=== PATIENT | male | born 1990 | race Two or more races ===

== ENCOUNTER 2021-02-15 18:27 | Inpatient (IN) | payer MEDICAID ==
[~2021-02-15] VITALS: Ht 170.2 cm; Wt 166.2 kg
[2021-02-15] MEDS ORDERED: ACETAMINOPHEN 325MG TABLET PO STA (18:43)
[2021-02-15 19:01] LABS: BASOPHILS % 0.9 % (0.0-2.0); EOSINOPHILS % 0.1 % (0.0-5.0); HEMATOCRIT. 59.3 % (42.0-52.0); HEMOGLOBIN. 19.4 g/dL (14.0-18.0); LYMPHOCYTES % 20.5 % (20.0-50.0); MEAN CORPUSCULAR HEMOGLOBIN 28.3 pg (28.0-32.0); MEAN CORPUSCULAR VOLUME 86.4 fL (80.0-94.0); MEAN PLATELET VOLUME 9.6 fl (7.4-10.4); MONOCYTES % 14.9 % (2.0-8.0); NEUTROPHILS % 63.6 % (40.0-76.0); PLATELET 235 x1000/uL (130-400); RED BLOOD CELL COUNT 6.86 mill/uL (4.7-6.1); RED CELL DISTRIBUTION WIDTH 16.6 % (11.6-14.6)
[2021-02-15 19:07] LABS: CHLORIDE 98 mEq/L (98-107)
[2021-02-15 19:11] LABS: INR 1.1; PROTHROMBIN TIME 11.7 sec (9.6-11.0)
[2021-02-15] MEDS ORDERED: ALBUTEROL (0.083%) 2.5MG/3ML NEB HHN ONE (20:00)
[2021-02-15 20:26] LABS: BG CARBOXYHEMOGLOBIN 0.9 % (0.5-1.5); BG DEOXYHEMOGLOBIN 7.2 % (0.0-5.0); BG FRACTION INSPIRED OXYGEN 100; BG HCO3 ACT 33.3 mmol/L (22.0-26.0); BG METHEMOGLOBIN 0.6 % (0.0-1.5); BG OXYGEN SATURATION 92.7 % (92.0-98.5); BG OXYHEMOGLOBIN 91.3 % (94.0-97.0); BG PCO2 85.8 mmHg (35.0-45.0); BG PH 7.207 (7.350-7.450); BG PO2 73.8 mmHg (75.0-100.0); BG SAMPLE SITE RIGHT RADIAL; BG TOTAL HEMOGLOBIN 20.3 g/dL (12.0-18.0); BG VENT MODE MASK - NRB
[2021-02-15] MEDS ORDERED: NITROGLYCERIN 0.4MG TABLET SL SL PRN (20:45)
[2021-02-15] MEDS ORDERED: FUROSEMIDE 40MG/4ML VIAL IV ONE (20:45)
[2021-02-15] MEDS ORDERED: ASPIRIN 81MG TABLET PO ONE (20:45)
[2021-02-15 22:16] LABS: BG BASE EXCESS 0.1 mmol/L (-2.0-2.0); BG CARBOXYHEMOGLOBIN 0.6 % (0.5-1.5); BG DEOXYHEMOGLOBIN 13.3 % (0.0-5.0); BG FRACTION INSPIRED OXYGEN 100; BG HCO3 ACT 31.7 mmol/L (22.0-26.0); BG METHEMOGLOBIN 0.4 % (0.0-1.5); BG OXYGEN SATURATION 86.6 % (92.0-98.5); BG OXYHEMOGLOBIN 85.7 % (94.0-97.0); BG PCO2 79.7 mmHg (35.0-45.0); BG PH 7.218 (7.350-7.450); BG PO2 58.6 mmHg (75.0-100.0); BG SAMPLE SITE RIGHT RADIAL; BG TOTAL HEMOGLOBIN 20.8 g/dL (12.0-18.0); BG VENT MODE MASK - BIPAP
[2021-02-15] MEDS ORDERED: SUCCINYLCHOLINE CHLORIDE 200MG/10ML IV ONE (22:45)
[2021-02-15] MEDS ORDERED: PROPOFOL 10MG/ML 100ML 100 ML IV SCH (22:45)
[2021-02-15] MEDS ORDERED: ETOMIDATE 2MG/ML 10ML VIAL IV ONE (22:45)
[2021-02-16] VITALS (69 sets, daily range): BP systolic 71–172; BP diastolic 25–111
[2021-02-16] MEDS ORDERED: ACETAMINOPHEN 325MG TABLET PO PRN (02:15)
[2021-02-16] MEDS ORDERED: CLONIDINE 0.1MG TABLET PO PRN (03:00)
[2021-02-16] MEDS ORDERED: CARVEDILOL 3.125 MG TABLET PO SCH (03:00)
[2021-02-16 05:53] LABS: HEMATOCRIT 58.4 % (42.0-52.0); HEMOGLOBIN 18.7 g/dL (14.0-18.0); MEAN CORPUSCULAR HEMOGLOBIN 27.8 pg (28.0-32.0); MEAN CORPUSCULAR VOLUME 86.5 fL (80.0-94.0); RED BLOOD CELL COUNT 6.76 mill/uL (4.7-6.1)
[2021-02-16 06:19] LABS: CHLORIDE 99 mEq/L (98-107)
[2021-02-16] MEDS: LISINOPRIL 40MG TABLET PO SCH (08:23)
[2021-02-16] MEDS ORDERED: CARVEDILOL 6.25 MG TABLET PO SCH (09:00)
[2021-02-16] MEDS ORDERED: FUROSEMIDE 40MG/4ML VIAL IVP SCH (09:00)
[2021-02-16] MEDS ORDERED: CEFTRIAXONE 1 G PREMIX 50 ML IV SCH (09:45)
[2021-02-16] MEDS ORDERED: DOCUSATE SODIUM 100MG CAPSULE PO PRN (09:45)
[2021-02-16] MEDS ORDERED: ALBUTEROL 6.7GM HFA INHALER ORI PRN (09:45)
[2021-02-16] MEDS ORDERED: MAGNESIUM/ALUMINUM HYDROXIDE/SIMETHICONE 30ML UDC PO PRN (09:45)
[2021-02-16] MEDS: AZITHROMYCIN 500 MG in DEXT 5% WATER 250 ML IV SCH (10:06)
[2021-02-16] MEDS: ENOXAPARIN 40MG/0.4ML SYR SUBCUT SCH ×2 (10:06→20:00)
[2021-02-16] MEDS: PANTOPRAZOLE SODIUM 40 MG/VIAL IV SCH (10:06)
[2021-02-16] MEDS ORDERED: NOREPINEPHRINE 8MG/250ML PMX 250 ML IV PRN (11:00)
[2021-02-16 11:07] LABS: BG BASE EXCESS 4.4 mmol/L (-2.0-2.0); BG CARBOXYHEMOGLOBIN 0.3 % (0.5-1.5); BG DEOXYHEMOGLOBIN 1.2 % (0.0-5.0); BG FRACTION INSPIRED OXYGEN 100; BG HCO3 ACT 37.2 mmol/L (22.0-26.0); BG METHEMOGLOBIN 0.7 % (0.0-1.5); BG OXYGEN SATURATION 98.8 % (92.0-98.5); BG OXYHEMOGLOBIN 97.8 % (94.0-97.0); BG PCO2 92.8 mmHg (35.0-45.0); BG PH 7.221 (7.350-7.450); BG PO2 173.5 mmHg (75.0-100.0); BG TOTAL HEMOGLOBIN 19.6 g/dL (12.0-18.0); BG VENT MODE MASK - BIPAP
[2021-02-16] MEDS ORDERED: NOREPINEPHRINE 8 MG in DEXTROSE 5% WATER 250 ML IV PRN (11:15)
[2021-02-16] MEDS: CEFTRIAXONE 1,000 MG in DEXTROSE 5% WATER 50 ML IV SCH (11:38)
[2021-02-16 12:50] LABS: PLATELET 205 x1000/uL (130-400)
[2021-02-16 15:50] LABS: BG BASE EXCESS 3.6 mmol/L (-2.0-2.0); BG CARBOXYHEMOGLOBIN 0.3 % (0.5-1.5); BG DEOXYHEMOGLOBIN 7.7 % (0.0-5.0); BG FRACTION INSPIRED OXYGEN 50; BG METHEMOGLOBIN 0.6 % (0.0-1.5); BG OXYGEN SATURATION 92.2 % (92.0-98.5); BG OXYHEMOGLOBIN 91.4 % (94.0-97.0); BG PCO2 73.5 mmHg (35.0-45.0); BG PH 7.283 (7.350-7.450); BG PO2 64.4 mmHg (75.0-100.0); BG SAMPLE SITE RIGHT RADIAL; BG TOTAL HEMOGLOBIN 19.9 g/dL (12.0-18.0); BG VENT MODE MASK - BIPAP
[2021-02-17] VITALS (88 sets, daily range): BP systolic 85–162; BP diastolic 17–124
[2021-02-17] MEDS ORDERED: ALBUTEROL (0.083%) 2.5MG/3ML NEB HHN PRN (03:45)
[2021-02-17 04:56] LABS: BASOPHILS % 0.2 % (0.0-2.0); EOSINOPHILS % 0.5 % (0.0-5.0); HEMATOCRIT. 55.2 % (42.0-52.0); HEMOGLOBIN. 17.4 g/dL (14.0-18.0); LYMPHOCYTES % 14.3 % (20.0-50.0); MEAN CORPUSCULAR HEMOGLOBIN 27.8 pg (28.0-32.0); MEAN CORPUSCULAR VOLUME 88.4 fL (80.0-94.0); MEAN PLATELET VOLUME 10.3 fl (7.4-10.4); MONOCYTES % 11.4 % (2.0-8.0); NEUTROPHILS % 73.6 % (40.0-76.0); PLATELET 202 x1000/uL (130-400); RED BLOOD CELL COUNT 6.24 mill/uL (4.7-6.1)
[2021-02-17 05:10] LABS: CHLORIDE 97 mEq/L (98-107)
[2021-02-17 05:20] LABS: PHOSPHORUS 3.6 mg/dL (2.5-4.9)
[2021-02-17 05:21] LABS: LDL CHOLESTEROL 138 mg/dL (5-100)
[2021-02-17 05:22] LABS: HDL CHOLESTEROL 42 mg/dL (40-59)
[2021-02-17] MEDS: LISINOPRIL 40MG TABLET PO SCH (09:00)
[2021-02-17] MEDS: PANTOPRAZOLE SODIUM 40 MG/VIAL IV SCH (09:53)
[2021-02-17] MEDS: DEXAMETHASONE 6MG TABLET PO SCH (09:53)
[2021-02-17] MEDS: ENOXAPARIN 40MG/0.4ML SYR SUBCUT SCH ×2 (09:55→22:19)
[2021-02-17 09:58] LABS: BG BASE EXCESS 7.6 mmol/L (-2.0-2.0); BG CARBOXYHEMOGLOBIN 0.9 % (0.5-1.5); BG DEOXYHEMOGLOBIN 2.6 % (0.0-5.0); BG FRACTION INSPIRED OXYGEN 85; BG HCO3 ACT 37.8 mmol/L (22.0-26.0); BG METHEMOGLOBIN 0.5 % (0.0-1.5); BG OXYGEN SATURATION 97.4 % (92.0-98.5); BG PCO2 76.7 mmHg (35.0-45.0); BG PH 7.311 (7.350-7.450); BG PO2 95.7 mmHg (75.0-100.0); BG SAMPLE SITE RIGHT RADIAL; BG TOTAL HEMOGLOBIN 17.9 g/dL (12.0-18.0); BG VENT MODE MASK - BIPAP
[2021-02-17] MEDS: AZITHROMYCIN 500 MG in DEXT 5% WATER 250 ML IV SCH (10:10)
[2021-02-17] MEDS: CEFTRIAXONE 1,000 MG in DEXTROSE 5% WATER 50 ML IV SCH (12:15)
[2021-02-17 13:35] LABS: BG BASE EXCESS 6.6 mmol/L (-2.0-2.0); BG CARBOXYHEMOGLOBIN 0.8 % (0.5-1.5); BG DEOXYHEMOGLOBIN 0.6 % (0.0-5.0); BG FRACTION INSPIRED OXYGEN 85; BG HCO3 ACT 36.4 mmol/L (22.0-26.0); BG METHEMOGLOBIN 0.6 % (0.0-1.5); BG OXYGEN SATURATION 99.4 % (92.0-98.5); BG PCO2 72.7 mmHg (35.0-45.0); BG PH 7.318 (7.350-7.450); BG PO2 191.2 mmHg (75.0-100.0); BG SAMPLE SITE RIGHT RADIAL; BG TOTAL HEMOGLOBIN 18.1 g/dL (12.0-18.0); BG VENT MODE MASK - BIPAP
[2021-02-17 15:29] LABS: CLARITY URINE CLEAR (CLEAR); COLOR URINE YELLOW (YELLOW); KETONES URINE NEGATIVE (NEGATIVE); LEUKOCYTE ESTERASE URINE NEGATIVE (NEGATIVE); NITRITE URINE NEGATIVE (NEGATIVE); OCCULT BLOOD URINE NEGATIVE (NEGATIVE); PH URINE 5.5 (4.5-8.0); PROTEIN URINE 2+ (NEGATIVE); SPECIFIC GRAVITY URINE 1.021 (1.005-1.030)
[2021-02-17 16:34] LABS: *BARBITURATES SCREEN URINE NEGATIVE (NEGATIVE); *BENZODIAZEPINES SCREEN URINE NEGATIVE (NEGATIVE); *COCAINE SCREEN URINE NEGATIVE (NEGATIVE); METHADONE URINE SCREEN NEGATIVE (NEGATIVE); OPIATES URINE SCREEN NEGATIVE (NEGATIVE); PHENCYCLIDINE URINE SCREEN NEGATIVE (NEGATIVE)
[2021-02-17 16:35] LABS: *AMPHETAMINES SCREEN URINE NEGATIVE (NEGATIVE); CANNABINOID URINE SCREEN PRESUMTIVE POSITIVE (NEGATIVE)
[2021-02-18] VITALS (29 sets, daily range): BP systolic 89–154; BP diastolic 49–85
[2021-02-18 05:54] LABS: HEMATOCRIT. 53.5 % (42.0-52.0); HEMOGLOBIN. 16.8 g/dL (14.0-18.0); MEAN CORPUSCULAR HEMOGLOBIN 27.1 pg (28.0-32.0); MEAN CORPUSCULAR VOLUME 86.3 fL (80.0-94.0); MEAN PLATELET VOLUME 10.3 fl (7.4-10.4); MONOCYTES % 7.6 % (2.0-8.0); NEUTROPHILS % 74.2 % (40.0-76.0); PLATELET 216 x1000/uL (130-400); RED CELL DISTRIBUTION WIDTH 16.8 % (11.6-14.6)
[2021-02-18 05:55] LABS: BASOPHILS % 0.1 % (0.0-2.0); EOSINOPHILS % 0.1 % (0.0-5.0)
[2021-02-18 05:56] LABS: CHLORIDE 97 mEq/L (98-107)
[2021-02-18 08:14] LABS: BG BASE EXCESS 6.2 mmol/L (-2.0-2.0); BG CARBOXYHEMOGLOBIN 0.5 % (0.5-1.5); BG DEOXYHEMOGLOBIN 1.2 % (0.0-5.0); BG FRACTION INSPIRED OXYGEN 50; BG HCO3 ACT 34.2 mmol/L (22.0-26.0); BG METHEMOGLOBIN 0.4 % (0.0-1.5); BG OXYGEN SATURATION 98.8 % (92.0-98.5); BG OXYHEMOGLOBIN 97.9 % (94.0-97.0); BG PCO2 61.4 mmHg (35.0-45.0); BG PH 7.364 (7.350-7.450); BG SAMPLE SITE RIGHT RADIAL; BG TOTAL HEMOGLOBIN 17.4 g/dL (12.0-18.0); BG VENT MODE MASK - BIPAP
[2021-02-18] MEDS: ENOXAPARIN 40MG/0.4ML SYR SUBCUT SCH ×2 (08:26→20:41)
[2021-02-18] MEDS: LISINOPRIL 40MG TABLET PO SCH (08:26)
[2021-02-18] MEDS: DEXAMETHASONE 6MG TABLET PO SCH (08:26)
[2021-02-18] MEDS: PANTOPRAZOLE SODIUM 40 MG/VIAL IV SCH (08:27)
[2021-02-18] MEDS: FUROSEMIDE 40MG/4ML VIAL IVP SCH ×2 (09:45→17:53)
[2021-02-18] MEDS: FAMOTIDINE 20MG/2ML VIAL IV SCH (20:41)
[2021-02-19] VITALS (12 sets, daily range): BP systolic 83–165; BP diastolic 59–90
[2021-02-19] MEDS: DIPHENHYDRAMINE 50MG CAPSULE PO PRN (00:23)
[2021-02-19] MEDS: ZOLPIDEM TARTRATE 5MG TABLET PO PRN (01:38)
[2021-02-19 08:38] LABS: BG BASE EXCESS 6.7 mmol/L (-2.0-2.0); BG CARBOXYHEMOGLOBIN 0.3 % (0.5-1.5); BG FRACTION INSPIRED OXYGEN 32; BG HCO3 ACT 36.2 mmol/L (22.0-26.0); BG METHEMOGLOBIN 0.4 % (0.0-1.5); BG OXYHEMOGLOBIN 93.3 % (94.0-97.0); BG PCO2 68.9 mmHg (35.0-45.0); BG PH 7.338 (7.350-7.450); BG PO2 71.6 mmHg (75.0-100.0); BG SAMPLE SITE RIGHT RADIAL; BG TOTAL HEMOGLOBIN 19.3 g/dL (12.0-18.0); BG VENT MODE NASAL CANNULA
[2021-02-19] MEDS: FUROSEMIDE 40MG/4ML VIAL IVP SCH ×2 (09:24→17:35)
[2021-02-19] MEDS: LISINOPRIL 40MG TABLET PO SCH (09:24)
[2021-02-19] MEDS: FAMOTIDINE 20MG/2ML VIAL IV SCH (09:24)
[2021-02-19] MEDS: DEXAMETHASONE 6MG TABLET PO SCH (09:24)
[2021-02-19] MEDS: ENOXAPARIN 40MG/0.4ML SYR SUBCUT SCH ×2 (09:25→20:08)
[2021-02-19 12:54] LABS: BG BASE EXCESS 7.3 mmol/L (-2.0-2.0); BG CARBOXYHEMOGLOBIN 0.2 % (0.5-1.5); BG DEOXYHEMOGLOBIN 7.3 % (0.0-5.0); BG FRACTION INSPIRED OXYGEN 21; BG HCO3 ACT 33.3 mmol/L (22.0-26.0); BG METHEMOGLOBIN 0.4 % (0.0-1.5); BG OXYGEN SATURATION 92.7 % (92.0-98.5); BG OXYHEMOGLOBIN 92.1 % (94.0-97.0); BG PCO2 49.8 mmHg (35.0-45.0); BG PH 7.443 (7.350-7.450); BG PO2 61.2 mmHg (75.0-100.0); BG SAMPLE SITE RIGHT RADIAL; BG TOTAL HEMOGLOBIN 19.6 g/dL (12.0-18.0); BG VENT MODE ROOM AIR
[2021-02-19] MEDS: FAMOTIDINE 20MG TABLET PO SCH (20:08)
[2021-02-20] VITALS (10 sets, daily range): BP systolic 112–150; BP diastolic 23–88
[2021-02-20] MEDS: DIPHENHYDRAMINE 50MG CAPSULE PO PRN (02:08)
[2021-02-20] MEDS: FAMOTIDINE 20MG TABLET PO SCH ×2 (08:58→20:12)
[2021-02-20] MEDS: FUROSEMIDE 40MG/4ML VIAL IVP SCH ×2 (08:58→17:10)
[2021-02-20] MEDS: ENOXAPARIN 40MG/0.4ML SYR SUBCUT SCH ×2 (08:58→20:09)
[2021-02-20] MEDS: LISINOPRIL 40MG TABLET PO SCH (09:00)
[2021-02-20] MEDS: DEXAMETHASONE 6MG TABLET PO SCH (09:00)
[2021-02-21] VITALS (20 sets, daily range): BP systolic 83–148; BP diastolic 29–99
[2021-02-21] MEDS: ZOLPIDEM TARTRATE 5MG TABLET PO PRN (00:36)
[2021-02-21] MEDS: FAMOTIDINE 20MG TABLET PO SCH ×2 (08:55→20:49)
[2021-02-21] MEDS: ENOXAPARIN 40MG/0.4ML SYR SUBCUT SCH ×2 (08:58→20:50)
[2021-02-21] MEDS: FUROSEMIDE 40MG/4ML VIAL IVP SCH ×2 (08:58→16:33)
[2021-02-21] MEDS: LISINOPRIL 40MG TABLET PO SCH (09:02)
[2021-02-21] MEDS ORDERED: LOSA100T32 MT (10:12)
[2021-02-21] MEDS ORDERED: FURO-151 MT (10:12)
[2021-02-21] MEDS ORDERED: ALBU18HF2 IH (10:12)
[2021-02-21] MEDS ORDERED: POTA20TA82 MT (10:12)
[2021-02-22] VITALS (14 sets, daily range): BP systolic 81–146; BP diastolic 34–72
[2021-02-22] MEDS: DIPHENHYDRAMINE 50MG CAPSULE PO PRN (01:06)
[2021-02-22] MEDS: ENOXAPARIN 40MG/0.4ML SYR SUBCUT SCH ×2 (08:32→21:33)
[2021-02-22] MEDS: FAMOTIDINE 20MG TABLET PO SCH ×2 (08:32→21:33)
[2021-02-22] MEDS: LISINOPRIL 40MG TABLET PO SCH (08:33)
[2021-02-22] MEDS: FUROSEMIDE 40MG/4ML VIAL IVP SCH ×2 (08:33→16:26)
[2021-02-23] VITALS (9 sets, daily range): BP systolic 107–158; BP diastolic 42–91
[2021-02-23] MEDS: DIPHENHYDRAMINE 50MG CAPSULE PO PRN (00:42)
[2021-02-23] MEDS: FUROSEMIDE 40MG/4ML VIAL IVP SCH (07:39)
[2021-02-23] MEDS: LISINOPRIL 40MG TABLET PO SCH (07:39)
[2021-02-23] MEDS: ENOXAPARIN 40MG/0.4ML SYR SUBCUT SCH (07:40)
[2021-02-23] MEDS: FAMOTIDINE 20MG TABLET PO SCH (07:40)
== END 2021-02-23 17:41 | disposition home or self-care (01) | DRG 133 ==
LOC: ER 18:27 → MICUSO 21:35 → ENRESERV 23:58 → MICUSO 02-16 02:36 → MICUNO 02-17 03:21 → 5EST 02-18 13:54
PROVIDERS: ADMIT Internal Medicine; ATTEND Internal Medicine
PROC: 5A09457 Assistance with Respiratory Ventilation, 24-96 Consecutive Hours, Continuous Positive Airway Pressure (ICD-10-PCS; 2021-02-15)
PROC: 5A09357 Assistance with Respiratory Ventilation, Less than 24 Consecutive Hours, Continuous Positive Airway Pressure (ICD-10-PCS; principal; 2021-02-17)
PROC: 5A09457 Assistance with Respiratory Ventilation, 24-96 Consecutive Hours, Continuous Positive Airway Pressure (ICD-10-PCS; 2021-02-17)
DX: J96.22 Acute and chronic respiratory failure with hypercapnia (principal); R65.11 Systemic inflammatory response syndrome (SIRS) of non-infectious origin with acute organ dysfunction; I50.43 Acute on chronic combined systolic (congestive) and diastolic (congestive) heart failure; I95.9 Hypotension, unspecified; E87.2 Acidosis; E44.0 Moderate protein-calorie malnutrition; E66.2 Morbid (severe) obesity with alveolar hypoventilation; E87.1 Hypo-osmolality and hyponatremia; Z68.43 Body mass index [BMI] 50.0-59.9, adult; Z20.822 Contact with and (suspected) exposure to COVID-19; E78.5 Hyperlipidemia, unspecified; J45.909 Unspecified asthma, uncomplicated; Z79.899 Other long term (current) drug therapy; Z71.3 Dietary counseling and surveillance
CPT/HCPCS: 36415; 36600; 71045; 80048; 80053; 80061; 80076; 80305; 81003; 82375; 82805; 83605; 83735; 83880; 84100; 84443; 84484; 85025; 85027; 93005; 93306; 93970; 94618; 94640; 94660; 99291; C9113; J0456; J0696; J1650; J1940; J3490; J7040; J7060; Q0163; U0003; U0005